=== PATIENT | male | born 1975 ===

== ENCOUNTER 2024-12-29 16:14 | Emergency (ER) | payer OTHER, SELFPAY ==
[2024-12-29 16:16] VITALS: BP 132/99
[2024-12-29 16:37] LABS: Hematocrit 42.7 % (39.0-52.0); Hemoglobin 15.1 g/dL (13.0-18.0); Mean Corp Hgb Conc. 35.4 g/dL (33.0-37.0); Mean Corpuscular Volume 86.8 fL (80.0-94.0); Nucleated Red Blood Cells % 0 % (-); Platelet Count 287 10^3/uL (130-400); Red Cell Dist. Width 12.5 % (11.5-14.5)
[2024-12-29 16:38] LABS: Urine Character Clear (Clear)
[2024-12-29 16:49] LABS: Urine Squamous Cell 0-2 /LPF (Few)
[2024-12-29 16:50] LABS: Urine Red Blood Cell 0-2 /HPF (0-2); Urine White Cell 0-2 /HPF (0-5)
[2024-12-29 17:08] LABS: ALT (SGPT) 24 U/L (0-50); AST (SGOT) 23 U/L (17-59); Albumin 4.8 g/dl (3.5-5.0); Alkaline Phosphatase 72 U/L (38-126); Blood Urea Nitrogen 16 mg/dl (9-20); Calcium 10.1 mg/dl (8.4-10.2); Carbon Dioxide 24 mmol/L (22-30); Chloride 99 mmol/L (98-107); Glucose 90 mg/dl (70-99); Lipase 37 U/L (23-300); Potassium 4.1 mmol/L (3.5-5.1); Sodium 135 mmol/L (135-145); Total Protein 7.7 g/dl (6.3-8.2); eGFR > 60.00
[2024-12-29 18:37] VITALS: BMI 25.6
[2024-12-29 18:46] VITALS: BP 110/79
--- NOTE | 2024-12-29 19:14 | ED.GENMED ---
History of Present Illness
General
Chief Complaint: Abdominal Pain
Source: patient
Exam Limitations: none
Time Seen by Provider: 12/29/24 18:13
History of Present Illness
History of Present Illness:
49-year-old male presents complaining of 2 to 3 days worth of persistent lower abdominal pain. In fact, the pain is actually slightly improved today than it was yesterday. No fevers. No nausea. He notes slightly looser stool than usual. No
vomiting. Spoke with his doctor on-call and they advised he come here. No urinary symptoms. No other
Phy Exam
Physical Exam
Physical Exam:
General: Well-appearing male in no acute respiratory distress
HEENT: Normocephalic atraumatic
Heart: Regular rate and rhythm
Lungs: Clear no wheeze
Abdomen is soft tender to the mid lower abdomen and left lower quadrant. Mild guarding no rebound tenderness nondistended no costovertebral angle
Extremities: No cyanosis
Course
Orders/Labs/Results
Orders:
Orders
12/29/24 16:27
Complete Blood Count/With Diff Urgent
Comprehensive Metabolic Panel Urgent
Lipase Urgent
Urinalysis Reflex To Culture Urgent
Date Specimen was Collected: 12/29/24
Time Specimen was Collected: 16:21
Urine Microscopic Reflex Cult Urgent
12/29/24 18:32
CT Abd/pelvis W Iv Cont Urgent
Comment:
Reason For Exam: lower abdominal pain
Abnormal Lab Results
12/29/24
16:27
Absolute Neuts (auto) 7.5 H 10^3/uL
(1.4-6.5)
Absolute Lymphs (auto) 1.0 L 10^3/uL
(1.2-3.4)
Absolute Monos (auto) 0.8 H 10^3/uL
(0.1-0.6)
Neutrophils % 78.5 H %
(42.2-75.2)
Lymphocytes % 10.6 L %
(20.5-51.1)
Urine Ketones 3+ A
(Negative)
Urine Albumin (Reflex) 1+ A
(Neg - Trace)
12/29/24 16:27
12/29/24 16:27
Vital Signs
Initial and Last Documented VS:
Initial Vital Signs
Temp Pulse Resp BP Pulse Ox
98.2 F 94 16 132/99 100
12/29/24 16:16 12/29/24 16:16 12/29/24 16:16 12/29/24 16:16 12/29/24 16:16
Last Documented Vital Signs
Temp Pulse Resp BP Pulse Ox
98.2 F 94 16 110/79 99
12/29/24 16:16 12/29/24 16:16 12/29/24 16:16 12/29/24 18:46 12/29/24 19:16
MDM/Problems Addressed
Differential Diagnosis Includes:
Lower abdominal pain. Consider constipation versus diverticulitis versus appendicitis
Will check labs and urine. CT pending.
*Pulse Oximetry
SaO2: 99
Oxygen Mode of Delivery: Room air
Patient hypoxic: no
*Critical Care Note
Total Time (30-74mins, 75-104mins- exclusive of procedures): Not Applicable
Update Note
Update Note:
CT of abdomen and pelvis negative for acute finding. Patient reassured. He states he is feeling better today than he was yesterday. Question possible foodborne illness. No indication for admission. Stable for discharge
ED Attending Note
-
Portions of this chart may have been created with voice recognition software.� Occasional wrong word or��sound alike� substitutions may have occurred due to the inherent limitations of voice recognition software.
Discharge Plan
Departure
Patient Disposition: Home (Routine Discharge)
Date of Disposition: 12/29/24
Time of Disposition: 19:34
Patient with high blood pressure during this ER visit?: No
Discharge Problem:
Abdominal pain
Instructions: Abdominal Pain
Referrals:
UNKNOWN - PT DOES,NOT KNOW [Family Provider]
Activity Restrictions/Additional Instructions:
Continue with bland diet and plenty of clear liquids. Return if worse otherwise follow-up with your doctor
Interventions
Interventions:
*Risk Screen - Suicide Last Done: 12/29/24 16:16
*General Assessment Last Done: 12/29/24 18:38
*Neglect/Abuse Screening Last Done: 12/29/24 16:16
*ED- Fall Risk Assessment Last Done: 12/29/24 18:38
*ED COVID-19 Vaccine History Last Done: 12/29/24 18:38
UX-Jlkrjr-Iuyokxqrpk Assessment Last Done: 12/29/24 18:38
Discharge Date and Time
Print Language: MALTESE
== END 2024-12-29 19:43 | disposition home or self-care (01) ==
LOC: EMR 16:14
PROVIDERS: Emergency Medicine; EMERGENCY PHYSICIAN Emergency Medicine
DX: R10.30 Lower abdominal pain, unspecified (principal)
CPT/HCPCS: 99284; 74177; 80053; 81003; 81015; 83690; 85025; Q9967